=== PATIENT | female | born 1975 ===

== ENCOUNTER 2022-07-12 09:44 | Day surgery (SDC) | payer OTHER | END 2022-07-12 17:05 | disposition home or self-care (01) | LOC: U 09:44 → CIR.AMB 09:44 | PROVIDERS: ATTEND Obstetrics & Gynecology | DX: N93.8 Other specified abnormal uterine and vaginal bleeding (principal); N87.9 Dysplasia of cervix uteri, unspecified; D25.0 Submucous leiomyoma of uterus; Z20.822 Contact with and (suspected) exposure to COVID-19; Z88.6 Allergy status to analgesic agent; Z88.0 Allergy status to penicillin ==

== ENCOUNTER 2022-08-14 07:00 | Inpatient (IN) | payer OTHER ==
[~2022-08-14] VITALS: Ht 160 cm; Wt 77.1 kg
[2022-08-14] MEDS ORDERED: ZYRTEC10 M3 PO (13:59)
== END 2022-08-19 12:15 | disposition home or self-care (01) | DRG 743 ==
LOC: SURH 08-16 07:00 → O/R 08-16 11:16 → OB/GYN 08-16 17:46
PROVIDERS: ADMIT Obstetrics & Gynecology; ATTEND Obstetrics & Gynecology
PROC: 0UT70ZZ Resection of Bilateral Fallopian Tubes, Open Approach (ICD-10-PCS; 2022-08-16)
PROC: 0UT90ZZ Resection of Uterus, Open Approach (ICD-10-PCS; principal; 2022-08-16 11:15)
DX: D25.1 Intramural leiomyoma of uterus (principal); N80.03 Adenomyosis of the uterus; N72 Inflammatory disease of cervix uteri; Z20.822 Contact with and (suspected) exposure to COVID-19